=== PATIENT | female | born 1995 | race Caucasian/White ===

== ENCOUNTER 2017-08-21 01:20 | Outpatient (CLI) | payer OTHER ==
[~2017-08-21 01:20] MED LIST: NO MEDS; NOHOMEMEDS
[2017-08-21 01:51] VITALS: BP 114/65
[2017-08-21] MEDS ORDERED: GUMMIES CHILDR1 EACH PO (03:39)
[2017-08-21 04:04] VITALS: BP 106/61
[2017-08-21 09:01] VITALS: BP 107/53
== END 2017-08-21 09:26 | disposition home or self-care (01) ==
LOC: LDRP-OP 01:20 → 2WEST 01:21
DX: Z03.79 Encounter for other suspected maternal and fetal conditions ruled out (principal); S39.91XA Unspecified injury of abdomen, initial encounter; W22.09XA Striking against other stationary object, initial encounter; Y92.59 Other trade areas as the place of occurrence of the external cause; Y99.0 Civilian activity done for income or pay; Z29.13 Encounter for prophylactic Rho(D) immune globulin; Z31.82 Encounter for Rh incompatibility status; O99.322 Drug use complicating pregnancy, second trimester; F12.90 Cannabis use, unspecified, uncomplicated; O99.512 Diseases of the respiratory system complicating pregnancy, second trimester; J45.909 Unspecified asthma, uncomplicated; O99.342 Other mental disorders complicating pregnancy, second trimester; F32.9 Major depressive disorder, single episode, unspecified; Z3A.19 19 weeks gestation of pregnancy
CPT/HCPCS: 59025; 85460; 86850; 86900; 86901; G0378; J2790

== ENCOUNTER → 2017-11-24 | Outpatient (CLI) | payer OTHER ==
[~2017-11-24] MED LIST changes: +GUMMIES CHILDR1 EACH PO; +PRENATAL TABLE1 EAC3 PO
[2017-11-24 13:27] VITALS: BP 116/67
== END | disposition home or self-care (01) ==
LOC: IVINF 13:00
DX: Z34.83 Encounter for supervision of other normal pregnancy, third trimester (principal); Z31.82 Encounter for Rh incompatibility status; Z3A.28 28 weeks gestation of pregnancy; Z67.91 Unspecified blood type, Rh negative
CPT/HCPCS: 96372; J2790